=== PATIENT | male | born 1955 | race Caucasian/White ===

== ENCOUNTER 2021-06-20 12:29 | Inpatient (IN) | payer OTHER ==
[~2021-06-20] VITALS: Ht 172.7 cm; Wt 71.7 kg
[2021-06-20 14:47] LABS: HEMOGLOBIN 15.3 gm/dl (14.0-17.5); RED BLOOD COUNT 5.47 M/UL (4.20-5.50); WHITE BLOOD COUNT 7.1 K/UL (4.5-11.0)
[2021-06-20 15:17] LABS: BUN/CREATININE RATIO 21 (0-10)
[2021-06-20] MEDS ORDERED: XANAX1 MG PO (16:53)
[2021-06-20] MEDS ORDERED: WELLBUTRIN 75 M75 MG PO (16:53)
[2021-06-20] MEDS ORDERED: ZESTRIL40 MG PO (16:54)
[2021-06-20] MEDS ORDERED: BENADRYL 25MG C25 MG PO (16:54)
[2021-06-20] MEDS ORDERED: NEURONTIN300 MG PO (16:54)
[2021-06-21 08:40] LABS: HEMOGLOBIN 15.7 gm/dl (14.0-17.5); RED BLOOD COUNT 5.54 M/UL (4.20-5.50)
[2021-06-21 08:54] LABS: WHITE BLOOD COUNT 3.7 K/UL (4.5-11.0)
[2021-06-21 09:00] LABS: BUN/CREATININE RATIO 29 (0-10)
--- NOTE | 2021-06-21 23:30 | NUR ---
NOTIFIED [employer] THAT PT NEEDED A NEW PULSE OX CORD. PT'S CORD WAS NOT WORKING PROPERLY. [employer] STATED THAT WE WERE OUT OF PULSE OX CORDS AT THE MOMENT, BUT HE WOULD PLACE ME ON THE WAITING LIST.
[2021-06-22 08:11] LABS: HEMOGLOBIN 14.4 gm/dl (14.0-17.5); RED BLOOD COUNT 5.13 M/UL (4.20-5.50)
[2021-06-22 08:20] LABS: WHITE BLOOD COUNT 10.9 K/UL (4.5-11.0)
[2021-06-22 08:33] LABS: BUN/CREATININE RATIO 35 (0-10)
[2021-06-23 09:01] LABS: HEMOGLOBIN 14.3 gm/dl (14.0-17.5); RED BLOOD COUNT 4.77 M/UL (4.20-5.50)
[2021-06-23 09:02] LABS: WHITE BLOOD COUNT 7.7 K/UL (4.5-11.0)
[2021-06-23 09:24] LABS: BUN/CREATININE RATIO 29 (0-10)
[2021-06-24 07:11] LABS: HEMOGLOBIN 13.1 gm/dl (14.0-17.5); RED BLOOD COUNT 4.62 M/UL (4.20-5.50); WHITE BLOOD COUNT 7.1 K/UL (4.5-11.0)
[2021-06-24 07:23] LABS: BUN/CREATININE RATIO 23 (0-10)
[2021-06-24] MEDS ORDERED: DECADRON6 MG PO (09:32)
[2021-06-25 08:56] LABS: HEMOGLOBIN 14.1 gm/dl (14.0-17.5); RED BLOOD COUNT 4.8 M/UL (4.20-5.50); WHITE BLOOD COUNT 7.2 K/UL (4.5-11.0)
[2021-06-25 09:14] LABS: BUN/CREATININE RATIO 23 (0-10)
== END 2021-06-25 18:15 | disposition home health service (06) | DRG 177 ==
LOC: ER1 12:29 → M/S 16:08 → CDU 16:08 → M/S 06-21 00:27
PROVIDERS: Internal Medicine; Physician Assistant; ADMIT Internal Medicine
PROC: 8E0ZXY6 Isolation (ICD-10-PCS; principal; 2021-06-20)
PROC: 3E0333Z Introduction of Anti-inflammatory into Peripheral Vein, Percutaneous Approach (ICD-10-PCS; 2021-06-20)
PROC: XW033E5 Introduction of Remdesivir Anti-infective into Peripheral Vein, Percutaneous Approach, New Technology Group 5 (ICD-10-PCS; 2021-06-20)
DX: U07.1 COVID-19 (principal); J12.82 Pneumonia due to coronavirus disease 2019; J96.01 Acute respiratory failure with hypoxia; J98.11 Atelectasis; I10 Essential (primary) hypertension; G62.9 Polyneuropathy, unspecified; F41.9 Anxiety disorder, unspecified; F32.9 Major depressive disorder, single episode, unspecified; Z96.612 Presence of left artificial shoulder joint; Z98.890 Other specified postprocedural states; Z90.49 Acquired absence of other specified parts of digestive tract; Z80.8 Family history of malignant neoplasm of other organs or systems; Z82.0 Family history of epilepsy and other diseases of the nervous system; Z79.899 Other long term (current) drug therapy
CPT/HCPCS: 36415; 36600; 71045; 80048; 80053; 82550; 82553; 82803; 83605; 83735; 83874; 84484; 85025; 85027; 86140; 87040; 93005; 94640; 94664; 94760; 97110-GP-CQ; 97116-GP-CQ; 97161; 97166; 97530; 99285; J0456; J0696; J1100; J1650; J7030; U0002